=== PATIENT | male | born 1975 | race Caucasian/White ===

== ENCOUNTER 2021-02-09 14:13 | Inpatient (IN) | payer BC ==
[~2021-02-09] VITALS: Ht 180.3 cm; Wt 101.4 kg
[2021-02-09] MEDS ORDERED: naloxone 2mg/2ml inj IV STA ×2 (14:44→18:29)
[2021-02-09] MEDS ORDERED: BUDE10.22 INH (15:12)
[2021-02-09] MEDS ORDERED: MONT10TA21 PO (15:12)
[2021-02-09] MEDS ORDERED: ALBU18HF2 INH (15:12)
--- NOTE | 2021-02-09 15:43 | NUR ---
Spoke with poison control, they recomend monitoring pt. for 4-6 hours since last dose of naloxone, if EKG shows prolonged QTC replace potassium, if valium was taken likely protective against possible seizures from trazadone, recomend "benzo's" for seizures. They recomend against flumazenil.
[2021-02-09 15:58] LABS: BASOPHILS % (AUTO) 0.3 % (0-1); EOSINOPHILS % (AUTO) 0.2 % (0-6); HEMOGLOBIN 16.7 g/dl (14.0-17.9); LYMPHOCYTES # (AUTO) 0.9 X10'3 (1.1-4.8); LYMPHOCYTES % (AUTO) 7.6 % (21-51); MEAN CORPUSCULAR HEMOGLOBIN 29.3 PG (27.0-31.0); MEAN CORPUSCULAR HGB CONC 32.8 g/dL (33.0-36.5); MEAN CORPUSCULAR VOLUME 89.2 FL (78-98); MEAN PLATELET VOLUME 8.5 FL (7.4-10.4); MONOCYTES # (AUTO) 0.7 X10'3 (0-0.9); MONOCYTES % (AUTO) 5.8 % (2-12); NEUTROPHILS # (AUTO) 10.7 X10'3 (1.8-7.7); NEUTROPHILS % (AUTO) 86.1 % (42-75); PLATELET COUNT 221 X10'3 (140-440); RED BLOOD COUNT 5.71 X10'6 (4.70-6.10); WHITE BLOOD COUNT 12.5 X10'3 (4.5-11.0)
[2021-02-09 16:04] LABS: ALANINE AMINOTRANSFERASE 34 U/L (12-78); ALBUMIN/GLOBULIN RATIO 1.1 (1.1-1.5); ALKALINE PHOSPHATASE 51 IU/L (46-116); ANION GAP 12 (8-16); ASPARTATE AMINO TRANSFERASE 21 U/L (10-37); BILIRUBIN,TOTAL 1.1 MG/DL (0.1-1.0); BLOOD UREA NITROGEN 26 MG/DL (7-18); BUN/CREATININE RATIO 13.9 (5.4-32.0); CALCIUM 8.8 MG/DL (8.5-10.1); CHLORIDE 106 MMOL/L (99-107); CREATININE 1.87 MG/DL (0.60-1.10); ETHANOL < 0.010 GM/DL (0.0-0.010); GLUCOSE 111 MG/DL (70-104); POTASSIUM 4.4 MMOL/L (3.5-5.1); SODIUM 145 MMOL/L (135-145); TOTAL CARBON DIOXIDE 27.2 MMOL/L (24-32); TOTAL PROTEIN 7.8 G/DL (6.4-8.2); eGFR 39 ML/MIN
[2021-02-09 16:05] LABS: ACETAMINOPHEN < 2.0 UG/ML (10-30)
[2021-02-09] MEDS ORDERED: normal saline 1000ML IV soln IVB ONE (16:55)
[2021-02-09 17:45] LABS: URINE AMPHETAMINE SCREEN NEGATIVE (Neg); URINE BARBITUATE SCREEN NEGATIVE (Neg); URINE BENZODIAZEPINES SCREEN POSITIVE (Neg); URINE CANNABINOID SCREEN POSITIVE (Neg); URINE COCAINE SCREEN NEGATIVE (Neg); URINE METHADONE SCREEN NEGATIVE (Neg); URINE OPIATE SCREEN POSITIVE (Neg); URINE PHENCYCLIDINE SCREEN NEGATIVE (Neg)
[2021-02-10] MEDS ORDERED: bisacodyl 10mg suppository rectal RC PRN (00:40)
[2021-02-10] MEDS ORDERED: acetaminophen 650mg rectal suppository RC PRN (00:40)
[2021-02-10] MEDS ORDERED: mag hydrox/Alum hydrox/simeth 30ml oral suspension PO PRN (00:40)
[2021-02-10] MEDS ORDERED: morphine 2 MG/ML inj. syringe IV PRN ×2 (00:40)
[2021-02-10] MEDS ORDERED: ondansetron 4mg rapidly disintigrating tab PO PRN (00:40)
[2021-02-10] MEDS ORDERED: diphenhydrAMINE 25mg capsule PO PRN (00:40)
[2021-02-10] MEDS ORDERED: HYDROcodone/acetaminophen 5mg/325mg tablet PO PRN (00:40)
[2021-02-10] MEDS ORDERED: ondansetron/PF 4mg/2ml inj IV PRN (00:40)
[2021-02-10] MEDS ORDERED: diphenhydrAMINE 50 mg/ml inj IV PRN (00:40)
[2021-02-10] MEDS ORDERED: acetaminophen 325mg tablet PO PRN (00:40)
[2021-02-10] MEDS ORDERED: magnesium hydroxide 30ml (MOM) UD suspension PO PRN (00:40)
[2021-02-10 01:37] LABS: HEMOGLOBIN A1C 5.6 % (4.5-6.2)
[2021-02-10 01:46] LABS: PARTIAL THROMBOPLASTIN TIME 23 SECONDS (22-32)
--- NOTE | 2021-02-10 01:51 | NUR ---
[facility] Request to be contacted when pt. is ready for discharge, pt. will have a warrant for arrest issued. Please call Parares[employer] Manager Boun @ [phone]. If Pararescue Manager Boun is not available please contact [facility] @ [phone] Benjamin has been contacted with the request of having arrest warrant faxed over.
[2021-02-10 01:56] LABS: CREATINE KINASE 230 U/L (39-308); LIPASE 62 U/L (73-393); MAGNESIUM 2.3 MG/DL (1.5-2.4); PHOSPHORUS 3.7 MG/DL (2.3-4.5)
[2021-02-10] MEDS: dextrose 5%-1/2 normal saline 1,000 ML IV SCH ×3 (04:02→20:40)
[2021-02-10] MEDS ORDERED: potassium Cl 20 mEq SR tablet PO PRN ×2 (05:05)
[2021-02-10] MEDS ORDERED: potassium Cl 40MEQ/1/2NS 520ml 520 ML IV PRN (05:05)
[2021-02-10] MEDS ORDERED: magnesium 4gm in 100ml NS 100 ML IV PRN (05:05)
[2021-02-10] MEDS ORDERED: magnesium Cl slow-release 64mg tablet PO PRN (05:05)
[2021-02-10] MEDS ORDERED: naloxone 0.4 mg/ml inj IV PRN (05:15)
[2021-02-10] MEDS: pantoprazole 40mg Tablet.DR PO SCH (07:56)
[2021-02-10] MEDS: K and/or MAG REPLACEMENT MC SCH ×2 (08:00→20:00)
[2021-02-10] MEDS: docusate sod 100mg capsule PO SCH ×2 (08:27→19:08)
[2021-02-10] MEDS: heparin, porcine 5000 units/ml vial SQ SCH ×2 (08:27→19:09)
--- NOTE | 2021-02-10 10:13 | NUR ---
Poison Control [place] called gathered Lab levels, QT interval, and patient status. Poison comtrol will be calling each day to check on patients status and gather updates
[2021-02-10 11:00] VITALS: BP 111/72
[2021-02-10 15:00] VITALS: BP 103/61
--- NOTE | 2021-02-10 17:00 | NUR ---
Spoke with Poison Control Rep [place] regarding patient status, mentation, Labs, QT interval and vitals. Poison Control will call again to review patient status and morning labs.
[2021-02-10 18:00] VITALS: BP 103/62
--- NOTE | 2021-02-10 18:13 | NUR ---
Problems reprioritized. Patient report given, questions answered & plan of care reviewed with Nitesh RN. Completed bedside report and introduced night nurse to patient.
[2021-02-10] MEDS ORDERED: albuterol 2.5 MG/3 ML nebule NEB PRN (18:35)
[2021-02-10] MEDS: albuterol 2.5 MG/3 ML nebule NEB SCH (20:25)
[2021-02-10] MEDS: budesonide 0.5mg/2ml UD nebule IH SCH (20:25)
[2021-02-10] MEDS ORDERED: temazepam 15mg capsule PO PRN (21:00)
[2021-02-10 22:00] VITALS: BP 109/67
[2021-02-11 02:00] VITALS: BP 106/62
[2021-02-11] MEDS: dextrose 5%-1/2 normal saline 1,000 ML IV SCH ×2 (03:06→15:44)
--- NOTE | 2021-02-11 06:15 | NUR ---
Problems reprioritized. Patient report given, questions answered & plan of care reviewed with ORDONEZ RN.
[2021-02-11 06:56] VITALS: BP 95/60
[2021-02-11 07:04] LABS: BASOPHILS # (AUTO) 0.1 X10'3 (0-0.2); BASOPHILS % (AUTO) 0.7 % (0-1); EOSINOPHILS # (AUTO) 0.4 X10'3 (0-0.9); HEMATOCRIT 41.6 % (42.0-52.0); HEMOGLOBIN 13.8 g/dl (14.0-17.9); LYMPHOCYTES # (AUTO) 2.3 X10'3 (1.1-4.8); LYMPHOCYTES % (AUTO) 21.9 % (21-51); MEAN CORPUSCULAR HEMOGLOBIN 29.5 PG (27.0-31.0); MEAN CORPUSCULAR HGB CONC 33.1 g/dL (33.0-36.5); MEAN CORPUSCULAR VOLUME 89.3 FL (78-98); MONOCYTES % (AUTO) 9.8 % (2-12); NEUTROPHILS # (AUTO) 6.7 X10'3 (1.8-7.7); NEUTROPHILS % (AUTO) 63.6 % (42-75); PLATELET COUNT 168 X10'3 (140-440); RED BLOOD COUNT 4.66 X10'6 (4.70-6.10); RED CELL DISTRIBUTION WIDTH 13.4 % (11.5-14.5); WHITE BLOOD COUNT 10.5 X10'3 (4.5-11.0)
[2021-02-11] MEDS: budesonide 0.5mg/2ml UD nebule IH SCH ×2 (07:29→20:37)
[2021-02-11] MEDS: albuterol 2.5 MG/3 ML nebule NEB SCH ×4 (07:29→20:37)
[2021-02-11 07:34] LABS: ANION GAP 6 (8-16); BLOOD UREA NITROGEN 14 MG/DL (7-18); BUN/CREATININE RATIO 10.5 (5.4-32.0); CALCIUM 7.9 MG/DL (8.5-10.1); CHLORIDE 108 MMOL/L (99-107); CREATININE 1.33 MG/DL (0.60-1.10); GLUCOSE 100 MG/DL (70-104); POTASSIUM 3.7 MMOL/L (3.5-5.1); SODIUM 143 MMOL/L (135-145); TOTAL CARBON DIOXIDE 29.4 MMOL/L (24-32); eGFR 58 ML/MIN
[2021-02-11 07:35] LABS: ALANINE AMINOTRANSFERASE 38 U/L (12-78); ALBUMIN 2.8 G/DL (3.4-5.0); ALBUMIN/GLOBULIN RATIO 0.9 (1.1-1.5); ALKALINE PHOSPHATASE 35 IU/L (46-116); ASPARTATE AMINO TRANSFERASE 27 U/L (10-37); BILIRUBIN,TOTAL 0.6 MG/DL (0.1-1.0); CHOL/HDL RATIO 4.1 (0.00-4.99); CHOLESTEROL 134 MG/DL (0-200); HDL CHOLESTEROL 33 MG/DL (35-60); LDL CHOLESTEROL 84 MG/DL (50-100); TOTAL PROTEIN 5.8 G/DL (6.4-8.2); TRIGLYCERIDES 85 MG/DL (20-135)
[2021-02-11] MEDS: K and/or MAG REPLACEMENT MC SCH ×2 (08:00→20:00)
[2021-02-11] MEDS: heparin, porcine 5000 units/ml vial SQ SCH ×2 (08:48→20:07)
[2021-02-11] MEDS: pantoprazole 40mg Tablet.DR PO SCH (08:49)
[2021-02-11] MEDS: docusate sod 100mg capsule PO SCH ×2 (08:49→20:07)
[2021-02-11] MEDS: nicotine 14mg patch - 24hr TD SCH (10:51)
--- NOTE | 2021-02-11 12:13 | NUR ---
PT'S WORKPLACE PROVIDED PT. EMERGENCY CONTACT = DOCTOR Oliva Harris [phone].
[2021-02-11 12:17] VITALS: BP 109/70
--- NOTE | 2021-02-11 13:00 | NUR ---
PT. REFUSES TO USE URINAL. EDUCATED ON NEED TO USE URINAL. SITTER AWARE
[2021-02-11 18:00] VITALS: BP 111/69
--- NOTE | 2021-02-11 18:11 | NUR ---
GAVE REPORT TO JANET RIOS RN.
[2021-02-11] MEDS ORDERED: montelukast 10mg tablet PO SCH (21:00)
[2021-02-11 22:00] VITALS: BP 102/56
[2021-02-12 02:00] VITALS: BP 104/68
[2021-02-12] MEDS: dextrose 5%-1/2 normal saline 1,000 ML IV SCH (02:40)
--- NOTE | 2021-02-12 06:04 | NUR ---
Problems reprioritized. Patient report given, questions answered & plan of care reviewed with ALEXIA DAVEY.
[2021-02-12 06:17] LABS: BASOPHILS # (AUTO) 0.1 X10'3 (0-0.2); BASOPHILS % (AUTO) 0.5 % (0-1); EOSINOPHILS # (AUTO) 0.5 X10'3 (0-0.9); EOSINOPHILS % (AUTO) 4.1 % (0-6); HEMATOCRIT 39.9 % (42.0-52.0); HEMOGLOBIN 13.7 g/dl (14.0-17.9); LYMPHOCYTES # (AUTO) 1.6 X10'3 (1.1-4.8); LYMPHOCYTES % (AUTO) 13.8 % (21-51); MEAN CORPUSCULAR HEMOGLOBIN 30.2 PG (27.0-31.0); MEAN CORPUSCULAR HGB CONC 34.4 g/dL (33.0-36.5); MEAN CORPUSCULAR VOLUME 87.7 FL (78-98); MEAN PLATELET VOLUME 8.2 FL (7.4-10.4); MONOCYTES % (AUTO) 8.8 % (2-12); NEUTROPHILS # (AUTO) 8.3 X10'3 (1.8-7.7); NEUTROPHILS % (AUTO) 72.8 % (42-75); PLATELET COUNT 172 X10'3 (140-440); RED BLOOD COUNT 4.55 X10'6 (4.70-6.10); RED CELL DISTRIBUTION WIDTH 13.3 % (11.5-14.5); WHITE BLOOD COUNT 11.4 X10'3 (4.5-11.0)
[2021-02-12 06:22] LABS: ALANINE AMINOTRANSFERASE 37 U/L (12-78); ALBUMIN 2.8 G/DL (3.4-5.0); ALBUMIN/GLOBULIN RATIO 0.9 (1.1-1.5); ALKALINE PHOSPHATASE 39 IU/L (46-116); ANION GAP 7 (8-16); ASPARTATE AMINO TRANSFERASE 25 U/L (10-37); BILIRUBIN,TOTAL 0.4 MG/DL (0.1-1.0); BLOOD UREA NITROGEN 9 MG/DL (7-18); CHLORIDE 106 MMOL/L (99-107); CREATININE 1.13 MG/DL (0.60-1.10); GLUCOSE 108 MG/DL (70-104); SODIUM 142 MMOL/L (135-145); TOTAL CARBON DIOXIDE 29.1 MMOL/L (24-32); TOTAL PROTEIN 5.9 G/DL (6.4-8.2); eGFR 70 ML/MIN
[2021-02-12] MEDS: pantoprazole 40mg Tablet.DR PO SCH (07:31)
[2021-02-12] MEDS: nicotine 14mg patch - 24hr TD SCH (07:31)
[2021-02-12] MEDS: heparin, porcine 5000 units/ml vial SQ SCH (07:32)
[2021-02-12] MEDS: docusate sod 100mg capsule PO SCH (07:32)
[2021-02-12] MEDS: K and/or MAG REPLACEMENT MC SCH (07:35)
[2021-02-12] MEDS: albuterol 2.5 MG/3 ML nebule NEB SCH (08:07)
[2021-02-12] MEDS: budesonide 0.5mg/2ml UD nebule IH SCH (08:07)
[2021-02-12] MEDS ORDERED: PANT-47 PO (10:34)
--- NOTE | 2021-02-12 11:37 | NUR ---
1135 completed discharge,provided edu to pt about al info in packet.. pt is a/ox3. Law enforcement is in room with warrant to take pt to station. iv's removed x2 and cath tips intact. no bleeding. belongings accounted for- empty pill bottle and drivers license.
--- NOTE | 2021-02-13 10:31 | NUR ---
CASE MANAGEMENT DISCHARGE FOLLOW UP: S/p chart review, no contact # for pt, unable to follow up.
== END 2021-02-12 11:35 | disposition home or self-care (01) | DRG 917 ==
LOC: ER 14:14 → ED HOLD 02-10 00:39 → PCU 3S 02-10 08:10
PROVIDERS: ADMIT Family Medicine; ATTEND Family Medicine
DX: T42.4X2A Poisoning by benzodiazepines, intentional self-harm, initial encounter (principal); G92 Toxic encephalopathy; N17.0 Acute kidney failure with tubular necrosis; E86.0 Dehydration; E83.42 Hypomagnesemia; E87.6 Hypokalemia; I10 Essential (primary) hypertension; Y92.89 Other specified places as the place of occurrence of the external cause; Z88.5 Allergy status to narcotic agent
CPT/HCPCS: 36415; 80053; 80061; 80305; 80320; 80329; 82550; 83036; 83690; 83735; 84100; 84132; 84443; 85025; 85610; 85730; 87081; 93005; 94640; 94760; 96374; 96376; 99285; G0378; J1644; J2310; J7030; J7626

== ENCOUNTER 2022-02-25 04:31 | Emergency (ER) | payer BC, MEDICAID ==
[~2022-02-25] VITALS: Ht 180.3 cm; Wt 111.4 kg
[~2022-02-25 04:31] MED LIST: ALBU18HF2 INH; BUDE10.22 INH; MONT10TA21 PO; PANT-47 PO
[2022-02-25] MEDS ORDERED: ipratropium/albuterol 3ml nebule NEB ONE (05:00)
[2022-02-25] MEDS ORDERED: CETI10TA19 PO (05:44)
[2022-02-25] MEDS ORDERED: MONT10TA21 PO (05:44)
[2022-02-25] MEDS ORDERED: MOME13HF2 INH (05:44)
[2022-02-25] MEDS ORDERED: ALBU8.5H17 INH (05:44)
[2022-02-25 05:55] VITALS: BP 120/83
[2022-02-26] MEDS ORDERED: BUTE12CR TOP (14:33)
[2022-02-26] MEDS ORDERED: CEPH-585 PO (14:33)
== END 2022-02-25 05:58 | disposition home or self-care (01) ==
LOC: ER 04:31
DX: J45.901 Unspecified asthma with (acute) exacerbation (principal); R06.02 Shortness of breath; Z88.0 Allergy status to penicillin; Z79.899 Other long term (current) drug therapy
CPT/HCPCS: 94640; 94760; 99283

== ENCOUNTER 2022-02-26 12:28 | Emergency (ER) | payer MEDICAID ==
[~2022-02-26] VITALS: Ht 180.3 cm; Wt 109.1 kg
[~2022-02-26 12:28] MED LIST changes: +ALBU8.5H17 INH; +CETI10TA19 PO; +MOME13HF2 INH
[2022-02-26] MEDS ORDERED: CEPH-585 PO (14:33)
[2022-02-26] MEDS ORDERED: BUTE12CR TOP (14:33)
[2022-02-26 14:41] VITALS: BP 127/77
== END 2022-02-26 14:44 | disposition home or self-care (01) ==
LOC: ER 12:29
DX: B35.3 Tinea pedis (principal); L03.119 Cellulitis of unspecified part of limb; J45.909 Unspecified asthma, uncomplicated; F17.200 Nicotine dependence, unspecified, uncomplicated; Z88.0 Allergy status to penicillin; Z79.2 Long term (current) use of antibiotics; Z79.899 Other long term (current) drug therapy
CPT/HCPCS: 99283